=== PATIENT | male | born 1965 | race African-American/Black ===

== ENCOUNTER 2022-07-14 18:23 | Emergency (ER) | payer OTHER, SELFPAY ==
--- NOTE | ~2022-07-14 | XR_ITS ---
EXAMINATION: XR CHEST CLINICAL INFORMATION: Cough and shortness of breath COMPARISON: None available. TECHNIQUE: 2 views of the chest were obtained. FINDINGS: No significant abnormality is noted involving the heart, lungs, mediastinum, bony thorax or soft tissues. XR/XR chest 2V IMPRESSION: Unremarkable examination.
--- NOTE | ~2022-07-14 | CT_ITS ---
EXAMINATION: CT ANGIOGRAM OF THE CHEST WITH AND WITHOUT CONTRAST (CT PULMONARY ANGIOGRAM FOR PE) CLINICAL INFORMATION: Reason for Exam cough up blood sob COMPARISON: Chest radiograph from today TECHNIQUE: Prior to contrast administration, noncontrast localization images were obtained. Subsequently, multidetector volumetric imaging was performed from the thoracic inlet to below the diaphragms following the administration of 65 mL Omnipaque 350 intravenous contrast. No contrast reaction reported Sagittal, coronal, and MIP oblique sagittal reformatted images were obtained on the CT workstation, uploaded to PACS, and reviewed. This CT examination was performed using dose optimization techniques as appropriate, variously including the following: *Automated exposure control *Adjustment of mA and/or kV according to patient size (this includes techniques or standardized protocols for targeted exams where dose is matched to indication/reason for exam; i.e. extremities or head) *Use of iterative reconstruction technique Total exam dose-length product 318 mGy-cm FINDINGS: QUALITY OF STUDY/CONTRAST BOLUS: Significant motion/artifact but satisfactory. PULMONARY ARTERIES: No central or lobar pulmonary embolism. No segmental embolism identified, although the right upper lobe segmental levels are not well evaluated due to artifact and motion. THORACIC AORTA: No aneurysm. LUNG: No focal consolidation, nodules or masses. The central airways are patent. Minimal linear atelectasis in the right middle lobe. PLEURA: No pleural effusion or pneumothorax. MEDIASTINUM: Normal heart size. No pericardial effusion. No hilar or mediastinal lymphadenopathy. No evidence of septal bowing or right heart strain. CORONARY ARTERY CALCIFICATION: None visualized on this study. CHEST WALL/AXILLA: No axillary or internal mammary lymphadenopathy. OSSEOUS STRUCTURES: No acute or suspicious osseous abnormality. UPPER ABDOMEN: Unremarkable. No reflux of contrast into the hepatic veins to suggest elevated right heart pressures. CT/CT angio chest PE protocol IMPRESSION: Study limited by motion and contrast artifact. No pulmonary embolism or other acute intrathoracic abnormality. VTE: negative
[2022-07-14 18:27] VITALS: BP 149/89; PULSE 92; RESP 18; TEMP 36.1; O2SAT 94
--- NOTE | 2022-07-14 18:27 | ECG_ITS ---
Test Reason : cp/dyspnea Blood Pressure : / mmHG Vent. Rate : 082 BPM Atrial Rate : 082 BPM P-R Int : 134 ms QRS Dur : 076 ms QT Int : 346 ms P-R-T Axes : 062 026 053 degrees QTc Int : 404 ms Normal sinus rhythm Normal ECG No previous ECGs available Referred By: Kathleen Riggins Electronically Signed By:PALMER JOHNSON
--- NOTE | 2022-07-14 18:28 | ED.CHESTPAIN ---
HPI - Chest Pain General Stated Complaint: sob,chest pain,coughing Related Data Allergies Allergy/AdvReac Type Severity Reaction Status Date / Time Unable to Assess Allergy Verified 07/14/22 18:27 Course Course Course Narrative: This is a rapid medical exam. Deferred additional HPI, ROS, PE to primary provider. 56 yo male with history of asthma, GERD, anxiety, depression, bipolar disorder here with complaints of chest pain, shortness of breath and hemoptysis. No AC therapy use. Will obtain labs, EKG, CXR, viral testing.
[2022-07-14 19:20] LABS: MANUAL DIFF FLAG NO
[2022-07-14 19:22] LABS: Basophils Percent Auto 0.6 % (0-2); Eosinophils Absolute Auto 0.2 X10*3/uL (0.0-0.4); Hematocrit 36.8 % (42.0-52.0); Hemoglobin 12.5 g/dl (14.0-18.0); Imm Gran Abs Auto 0.01 X10*3/uL (0.00-0.03); Imm Gran Pct Auto 0.2 % (0.0-0.4); Lymphocytes Percent Auto 42.3 % (20-40); Mean Corpuscular Hemoglobin 26.7 pg (27.0-33.0); Mean Corpuscular Volume 78.6 fL (80.0-98.0); Mean Platelet Volume 8.2 fL (9.4-12.4); Monocytes Absolute Auto 0.6 X10*3/uL (0.1-1.2); Monocytes Percent Auto 12.1 % (2-11); Neutrophils Absolute Auto 1.9 x10*3/uL (2.0-8.3); Neutrophils Percent Auto 40.8 % (45-73); Platelet Count 209 X10*3/uL (160-400); Red Blood Count 4.68 X10*6/uL (4.60-5.80); Red Cell Distribution Width 12.7 % (11.0-16.0); White Blood Count 4.7 X10*3/uL (4.8-10.8)
[2022-07-14 19:24] VITALS: BP 133/81; PULSE 89; RESP 18; TEMP 36.8; O2SAT 96
[2022-07-14 19:27] LABS: Prothrombin Time 10.9 SEC (10.0-13.1)
[2022-07-14 19:38] LABS: Alanine Aminotransferase 23 U/L (0-40); Albumin Level 4.1 g/dL (3.5-5.0); Alkaline Phosphatase 70 U/L (39-117); Anion Gap 10 (12-20); Aspartate Amino Transferase 19 U/L (5-37); Bilirubin Direct 0.1 mg/dL (0.0-0.5); Bilirubin Total 0.4 mg/dL (0.0-1.0); Blood Urea Nitrogen 14 mg/dL (9-16); Calcium 9.1 mg/dL (8.4-10.2); Carbon Dioxide 27 mmol/L (22-29); Chloride 105 mmol/L (96-108); Creatinine Clr Calc Pharmacy 106.1; Estimated Glomerular Filt Rate > 60; Glucose Random 140 mg/dL (60-115); Potassium 4.4 mmol/L (3.3-5.1); Sodium 138 mmol/L (135-145)
[2022-07-14 19:44] LABS: Troponin-I High Sensitivity 9.5 ng/L (<3.5-35.0)
[2022-07-14 19:49] VITALS: BP 141/96; PULSE 85; RESP 18; TEMP 36.9; O2SAT 96
[2022-07-14 20:12] LABS: Influenza A PCR NEGATIVE (Negative); Influenza B PCR NEGATIVE (Negative); Resp Syncy Virus RNA Qual PCR NEGATIVE (Negative); SARS COV2 PCR INHOUSE NEGATIVE (Negative)
[2022-07-14] MEDS: Albuterol Sulfate (0.083%) 2.5 MG/3 ML VIAL.NEB INHALE (20:51)
[2022-07-14 20:53] VITALS: PULSE 84; RESP 18; O2SAT 95
[2022-07-14] MEDS: Albuterol Sulfate 90 MCG 8 GM INHALER 2 PUFF INHALE (21:01)
[2022-07-14] MEDS: iohexoL 350 MG/ML 100 ML INFUS..BTL IV (21:16)
--- NOTE | 2022-07-14 22:16 | MHC.EDTECH ---
Patient ambulated to bathroom with a steady gait.
--- NOTE | 2022-07-14 22:17 | ED.SOB ---
HPI - SOB/Dyspnea General Chief Complaint: Dyspnea Stated Complaint: sob,chest pain,coughing Time Seen by Provider: 07/14/22 18:56 Related Data Previous Rx's Medication Instructions Recorded albuterol sulfate 90 mcg/actuation 2 puff inhalation Q6H PRN sob #8.5 07/14/22 aerosol inhaler grams azithromycin 250 mg tablet See Rx Instructions PO .COMPLEX 07/14/22 upper resp infection #6 tabs Allergies Allergy/AdvReac Type Severity Reaction Status Date / Time lisinopril Allergy Unknown Verified 07/14/22 18:31 potassium chloride Allergy Unknown Verified 07/14/22 18:31 FOR[facility]LY [facility] Social History Social History Alcohol intake: never Smoked in Last 30 Days: Yes Use of substances other than those prescribed or required for medical reasons: No Advance Directives: No Advance Directives Information Provided: No Physical Exam Vital Signs: Vital Signs: Last Vital Signs Temp 98.4 F 07/14/22 19:49 Pulse 84 07/14/22 20:53 Resp 18 07/14/22 20:53 BP 141/96 H 07/14/22 19:49 Pulse Ox 96 07/14/22 19:49 O2 Del Method Room Air 07/14/22 19:49 BMI result Body Mass Index 30.0 Medications Administered Discontinued Medications Generic Name Dose Route Start Last Admin Trade Name Freq PRN Reason Stop Dose Admin Albuterol Sulfate 2.5 mg 07/14/22 20:43 07/14/22 20:51 Albuterol Sulfate (0.083%) 2.5 Mg/3 Ml Vial.Neb INHALE 07/14/22 20:44 2.5 mg ONCE ONE Administration Albuterol Sulfate 2 puff 07/14/22 20:57 07/14/22 21:01 Albuterol Sulfate 90 Mcg 8 Gm Inhaler INHALE 07/14/22 20:58 2 puff ONCE ONE Administration Iohexol 100 ml 07/14/22 21:15 07/14/22 21:16 Iohexol 350 Mg/Ml 100 Ml Infus..Btl IV 07/14/22 21:16 65 ml ONCE ONE Administration Medical Decision Making Medical Decision Making MDM Narrative: Patient presents today with having shortness of breath coughing repetitively. History of asthma. Patient lungs were clear. O2 sats 95% on room air. Patient is coughing up blood. Had shortness of breath. No evidence for congestive heart failure. lungs are clear. CTA of the chest was done. There was no evidence for pulmonary emboli. There was no pneumonia. No mass. No fracture. No pleural effusion. No evidence for CHF Patient's troponin was normal. There is no evidence for ACS. There is no chest pain associated with the symptoms. My interpretation of patient's EKG showed a sinus pattern heart rate is 80 LA QRS QT within normal limits there is no acute ST segment elevation noted. Did that with ACS. Question bronchitis. Patient's hemoglobin is no signs of anemia. No nausea no vomiting. Will start patient on cough medication as well as a Z-Len. Follow up on an outpatient basis. Differential Diagnosis Differential Diagnoses: The differential diagnosis associated with the presentation includes Pulmonary emboli, pneumonia, pneumothorax she, congestive heart failure, bronchitis Lab Data MDM Lab Attestation statement: I reviewed the patient's lab results. 07/14/22 19:15 07/14/22 19:15 Labs: Lab Results 07/14/22 07/14/22 07/14/22 Range/Units 19:15 19:15 19:15 WBC 4.7 L (4.8-10.8) X10*3/uL RBC 4.68 (4.60-5.80) X10*6/uL Hgb 12.5 L (14.0-18.0) g/dl Hct 36.8 L (42.0-52.0) % MCV 78.6 L (80.0-98.0) fL MCH 26.7 L (27.0-33.0) pg MCHC 34.0 (31.0-36.0) g/dl RDW 12.7 (11.0-16.0) % Plt Count 209 (160-400) X10*3/uL MPV 8.2 L (9.4-12.4) fL Immature Gran % (Auto) 0.2 (0.0-0.4) % Neut % (Auto) 40.8 L (45-73) % Lymph % (Auto) 42.3 H (20-40) % [place] % (Auto) 12.1 H (2-11) % Eos % (Auto) 4.0 (0-4) % Baso % (Auto) 0.6 (0-2) % Lymph # (Auto) 2.0 (1.2-4.9) X10*3/uL [place] # (Auto) 0.6 (0.1-1.2) X10*3/uL Eos # (Auto) 0.2 (0.0-0.4) X10*3/uL Baso # (Auto) 0.0 (0.0-0.2) X10*3/uL Abs Immat Gran (auto) 0.01 (0.00-0.03) X10*3/uL Absolute Neuts (auto) 1.9 L (2.0-8.3) x10*3/uL Absolute Nucleated RBC 0.000 (0.0-0.012) X10*3/uL Nucleated RBC % (auto) 0.0 (0.0-0.2) /100WBC PT 10.9 (10.0-13.1) SEC INR 1.0 (0.9-1.1) Sodium 138 (135-145) mmol/L Potassium 4.4 (3.3-5.1) mmol/L Chloride 105 (96-108) mmol/L Carbon Dioxide 27 (22-29) mmol/L Anion Gap 10 L (12-20) BUN 14 (9-16) mg/dL Creatinine 0.97 (0.5-1.4) mg/dL Estim Creat Clear Calc 106.1 Estimated GFR > 60 Random Glucose 140 H (60-115) mg/dL Calcium 9.1 (8.4-10.2) mg/dL Total Bilirubin 0.4 (0.0-1.0) mg/dL Direct Bilirubin 0.1 (0.0-0.5) mg/dL AST 19 (5-37) U/L ALT 23 (0-40) U/L Alkaline Phosphatase 70 (39-117) U/L Troponin I High Sens (<3.5-35.0) ng/L Total Protein 7.0 (6.5-8.0) g/dL Albumin 4.1 (3.5-5.0) g/dL 07/14/22 Range/Units 19:15 WBC (4.8-10.8) X10*3/uL RBC (4.60-5.80) X10*6/uL Hgb (14.0-18.0) g/dl Hct (42.0-52.0) % MCV (80.0-98.0) fL MCH (27.0-33.0) pg MCHC (31.0-36.0) g/dl RDW (11.0-16.0) % Plt Count (160-400) X10*3/uL MPV (9.4-12.4) fL Immature Gran % (Auto) (0.0-0.4) % Neut % (Auto) (45-73) % Lymph % (Auto) (20-40) % [place] % (Auto) (2-11) % Eos % (Auto) (0-4) % Baso % (Auto) (0-2) % Lymph # (Auto) (1.2-4.9) X10*3/uL [place] # (Auto) (0.1-1.2) X10*3/uL Eos # (Auto) (0.0-0.4) X10*3/uL Baso # (Auto) (0.0-0.2) X10*3/uL Abs Immat Gran (auto) (0.00-0.03) X10*3/uL Absolute Neuts (auto) (2.0-8.3) x10*3/uL Absolute Nucleated RBC (0.0-0.012) X10*3/uL Nucleated RBC % (auto) (0.0-0.2) /100WBC PT (10.0-13.1) SEC INR (0.9-1.1) Sodium (135-145) mmol/L Potassium (3.3-5.1) mmol/L Chloride (96-108) mmol/L Carbon Dioxide (22-29) mmol/L Anion Gap (12-20) BUN (9-16) mg/dL Creatinine (0.5-1.4) mg/dL Estim Creat Clear Calc Estimated GFR Random Glucose (60-115) mg/dL Calcium (8.4-10.2) mg/dL Total Bilirubin (0.0-1.0) mg/dL Direct Bilirubin (0.0-0.5) mg/dL AST (5-37) U/L ALT (0-40) U/L Alkaline Phosphatase (39-117) U/L Troponin I High Sens 9.5 (<3.5-35.0) ng/L Total Protein (6.5-8.0) g/dL Albumin (3.5-5.0) g/dL Independent Interpretation I performed an independent interpretation of an: EKG Interpretation: Heart rate is 80 LA QRS QT within normal limits as no acute ST segment elevation Radiology Impression Discussion of test interpretation with radiology: I have reviewed the radiologist's reading. Radiologist Impression: CT scan head grossly negative for any acute evidence of PE Chronic Conditions Patient?s care impacted by: Hypertension Social Determinants Patient?s care significantly limited by Social Determinants of Health including: Inadequate housing Patient is homeless Discharge Plan Discharge Clinical Impression: Bronchitis Patient Disposition: Home, Self-Care Instructions: Acute Bronchitis (ED) Prescriptions: New azithromycin 250 mg tablet See Rx Instructions .ROUTE .COMPLEX Qty: 6 0RF Rx Instructions: take 500 mg today (day 1), then 250 mg for 4 days (days 2-5) albuterol sulfate 90 mcg/actuation HFA aerosol inhaler 2 puff inhalation Q6H PRN (Reason: sob) Qty: 8.5 0RF Referrals: Physician,None [Primary Care Provider] -
[2022-07-14 22:34] VITALS: BP 123/74; PULSE 82; RESP 18; TEMP 36.5; O2SAT 97
== END 2022-07-14 22:38 | disposition home or self-care (01) ==
PROVIDERS: Nurse Practitioner Family; Emergency Provider Emergency Medicine Emergency Medical Services
DX: J40 Bronchitis, not specified as acute or chronic (principal); R06.02 Shortness of breath; R05.9 Cough, unspecified; R07.89 Other chest pain; Z20.822 Contact with and (suspected) exposure to COVID-19; Z20.828 Contact with and (suspected) exposure to other viral communicable diseases; Z79.899 Other long term (current) drug therapy
CPT/HCPCS: 0241U; 36415; 71046; 71275; 80048; 80076; 84484; 85025; 85610; 93005; 94640; 99284; 99285; Q9967

== ENCOUNTER 2022-07-30 14:49 | Emergency (ER) | payer MEDICARE, MEDICAID, SELFPAY ==
--- NOTE | ~2022-07-30 | XR_ITS ---
EXAMINATION: XR FOOT, RIGHT CLINICAL INFORMATION: First metatarsophalangeal injury. COMPARISON: None available. TECHNIQUE: AP, lateral, and oblique views of the right foot. FINDINGS: The bones and soft tissues are normal. No fracture. Alignment is anatomic. Joint spaces are maintained. XR/XR foot RT min 3V IMPRESSION: Unremarkable plain radiographs of the right foot
[2022-07-30 14:51] VITALS: BP 146/89; PULSE 99; RESP 17; TEMP 36.9; O2SAT 96; BMI 31.0
--- NOTE | 2022-07-30 14:53 | ED.LOWEXIN ---
HPI - Extremity Injury (Lower) General Chief Complaint: Extremity Injury, Lower <TAWANDA Grant - Last Filed: 07/30/22 14:57> Stated Complaint: r great toe inj <TAWANDA Grant - Last Filed: 07/30/22 14:57> Time Seen by Provider: 07/30/22 15:47 <TAWANDA Grant - Last Filed: 07/30/22 14:57> Source: patient <Naty Concepcion NP - Last Filed: 07/30/22 16:35> Mode of arrival: ambulatory <Naty Concepcion NP - Last Filed: 07/30/22 16:35> Limitations: no limitations <LEANDER Son Last Filed: 07/30/22 16:35> History of Present Illness HPI Narrative: Patient is a 57-year-old male with history of hypertension presenting to the emergency department with right great toe pain after dropping a glass jar onto his foot prior to arrival. He reports associated numbness and tingling. He did not use any [id number] medications for his symptoms, did not apply any ice. He did wrap his foot with an Phillip wrap. He reports decreased range of motion with flexion of his toes related to pain. He denies any other injuries. <Naty Concepcion NP - Last Filed: 07/30/22 16:35> Related Data Home Medications: Previous Rx's Medication Instructions Recorded albuterol sulfate 90 mcg/actuation 2 puff inhalation Q6H PRN sob #8.5 07/14/22 aerosol inhaler grams azithromycin 250 mg tablet See Rx Instructions PO .COMPLEX 07/14/22 upper resp infection #6 tabs <TAWANDA Grant - Last Filed: 07/30/22 14:57> Allergies/Adverse Reactions: Allergies Allergy/AdvReac Type Severity Reaction Status Date / Time lisinopril Allergy Unknown Verified 07/14/22 18:31 potassium chloride Allergy Unknown Verified 07/14/22 18:31 <TAWANDA Grant Last Filed: 07/30/22 14:57> Review of Systems Review of Systems: Yes all other systems are reviewed and are negative <Naty Concepcion NP - Last Filed: 07/30/22 16:35> Constitutional: Constitutional: Reports as per HPI <Naty Concepcion NP - Last Filed: 07/30/22 16:35> Neurologic: Denies Sensory deficit (Neuro) <Naty Concepcion NP - Last Filed: 07/30/22 16:35> FOR[facility]LY [facility], [facility] Social History Social History: Social History Alcohol intake: never Advance Directives: No Advance Directives Information Provided: No <TAWANDA Grant - Last Filed: 07/30/22 14:57> Physical Exam Vital Signs: Vital Signs: Last Vital Signs Temp 98.5 F 07/30/22 14:51 Pulse 99 07/30/22 14:51 Resp 17 07/30/22 14:51 BP 146/89 H 07/30/22 14:51 Pulse Ox 96 07/30/22 14:51 O2 Del Method Room Air 07/30/22 14:51 BMI result Body Mass Index 31.0 <TAWANDA Grant - Last Filed: 07/30/22 14:57> Vital Signs: Last Vital Signs Temp 98.5 F 07/30/22 14:51 Pulse 99 07/30/22 14:51 Resp 17 07/30/22 14:51 BP 146/89 H 07/30/22 14:51 Pulse Ox 96 07/30/22 14:51 O2 Del Method Room Air 07/30/22 14:51 BMI result Body Mass Index 31.0 <Naty Concepcion NP - Last Filed: 07/30/22 16:35> Const: General: cooperative, healthy appearing and no acute distress <Naty Concepcion NP - Last Filed: 07/30/22 16:35> Orientation/consciousness: oriented to person, oriented to place, oriented to time and patient oriented x3 <Naty Concepcion NP - Last Filed: 07/30/22 16:35> Limitations: no limitations <Naty Concepcion NP - Last Filed: 07/30/22 16:35> HEENT: Head: Yes normocephalic and Yes atraumatic <LEANDER Son Last Filed: 07/30/22 16:35> Ears: external ears normal <Naty Concepcion NP - Last Filed: 07/30/22 16:35> General nose exam: Normal external nose present <Naty Concepcion NP - Last Filed: 07/30/22 16:35> Face and sinus: Yes face symmetric <Naty Concepcion NP - Last Filed: 07/30/22 16:35> Mouth: oropharynx normal and moist mucous membranes <Naty Concepcion NP - Last Filed: 07/30/22 16:35> Throat: Yes uvula midline <Naty Concepcion NP - Last Filed: 07/30/22 16:35> Eyes: Pupils: Equal, round and reactive pupils present <Naty Concepcion NP - Last Filed: 07/30/22 16:35> Neck: Neck: Yes normal visual inspection and Yes supple <Naty Concepcion NP - Last Filed: 07/30/22 16:35> Resp: Effort & Inspection: normal respiratory effort and able to speak in complete sentences <Naty Concepcion NP - Last Filed: 07/30/22 16:35> Auscultation: clear to auscultation bilaterally <Naty Concepcion NP - Last Filed: 07/30/22 16:35> Cardio: Rate: regular rate <Naty Concepcion NP - Last Filed: 07/30/22 16:35> Rhythm: regular rhythm <Naty Concepcion NP - Last Filed: 07/30/22 16:35> Heart sounds: S1 normal heart sound present and S2 normal heart sound present <Naty Concepcion NP - Last Filed: 07/30/22 16:35> Skin: General skin exam: elasticity normal and turgor normal <Naty Concepcion NP - Last Filed: 07/30/22 16:35> Neuro: General: oriented to person, oriented to place, oriented to time, patient oriented x3, moves all extremities and no focal motor deficits <Naty Concepcion NP - Last Filed: 07/30/22 16:35> Cranial nerves: Yes Equal, round and reactive pupils present <Naty Concepcion NP - Last Filed: 07/30/22 16:35> Cognition (Neuro): normal cognition <LEANDER Son Last Filed: 07/30/22 16:35> Sensory Exam: No Sensory deficit (Neuro) <Naty Concepcoin NP - Last Filed: 07/30/22 16:35> Extrem: Right lower extremity: foot Details: normal capillary refill, abnormal to inspection Details: erythematous, tenderness Location: of the great toe Location: at the MTP joint, at the proximal phalanx, at the IP joint and at the distal phalanx, abnormal ROM of toe Details: pain with active ROM Location: of all toes and pain with passive ROM and edema Location: of the great toe Location: at the MTP joint, at the proximal phalanx, at the IP joint, at the distal phalanx and along the dorsal aspect; no unusual warmth, no ecchymosis and no crepitus <Naty Concepcion NP - Last Filed: 07/30/22 16:35> Psych: Mental Status: mental status grossly normal <Naty Concepcion NP - Last Filed: 07/30/22 16:35> Affect: normal affect <LEANDER Son Last Filed: 07/30/22 16:35> Thought process: Normal thought process present <Naty Concepcion NP - Last Filed: 07/30/22 16:35> Course Course Course Narrative: RME - 57 yo male with history of asthma, GERD, bipolar disorder, anxiety/depression presents to the ER for evaluation of right great toe injury earlier today. He dropped a glass coffee jar onto his toe this morning. No injury to the foot. He walks into triage with a limp. He has mild redness, swelling and tenderness to the 1st MTP. Plan: XR ordered <TAWANDA Grant - Last Filed: 07/30/22 14:57> RME - 57 yo male with history of asthma, GERD, bipolar disorder, anxiety/depression presents to the ER for evaluation of right great toe injury earlier today. He dropped a glass coffee jar onto his toe this morning. No injury to the foot. He walks into triage with a limp. He has mild redness, swelling and tenderness to the 1st MTP. Plan: XR ordered 16:25 FINDINGS: The bones and soft tissues are normal. No fracture. Alignment is anatomic. Joint spaces are maintained.? XR/XR foot RT min 3V IMPRESSION: Unremarkable plain radiographs of the right foot <Naty Concepcion NP - Last Filed: 07/30/22 16:35> Medications Administered Discontinued Medications Generic Name Dose Route Start Last Admin Trade Name Freq PRN Reason Stop Dose Admin Acetaminophen 975 mg 07/30/22 15:59 07/30/22 16:05 Acetaminophen 325 Mg Tablet PO 07/30/22 16:00 975 mg ONCE ONE Administration <TAWANDA Grant - Last Filed: 07/30/22 14:57> Medications Administered Discontinued Medications Generic Name Dose Route Start Last Admin Trade Name Freq PRN Reason Stop Dose Admin Acetaminophen 975 mg 07/30/22 15:59 07/30/22 16:05 Acetaminophen 325 Mg Tablet PO 07/30/22 16:00 975 mg ONCE ONE Administration <Naty Concepcion NP - Last Filed: 07/30/22 16:35> Medical Decision Making Medical Decision Making MDM Narrative: Patient is a 57-year-old male with history of hypertension presenting to the emergency department with right great toe pain after dropping a glass jar onto his foot prior to arrival. On exam patient is nontoxic appearing, vital signs within normal limits, afebrile, mild edema, erythema, and tenderness to palpation of right great toe and 1st MTP joint with limited range of motion related to pain, capillary refill less than 2 seconds. No open fracture or evidence of neurovascular compromise. Concern for contusion, fracture, or dislocation. Less likely gout in setting of known traumatic injury. Plan: pain control, x-ray Please refer to course for remaining clinical decision making. <Naty Concepcion NP - Last Filed: 07/30/22 16:35> Differential Diagnosis Differential Diagnoses: The differential diagnosis associated with the presentation includes <Naty Concepcion NP - Last Filed: 07/30/22 16:35> As above. <Naty Concepcion NP - Last Filed: 07/30/22 16:35> Independent Interpretation I performed an independent interpretation of an: Plain X-Ray <Naty Concepcion NP - Last Filed: 07/30/22 16:35> Interpretation: I independently reviewed the x-ray and agree with the radiologist's interpretation. <Naty Concepcion NP - Last Filed: 07/30/22 16:35> Radiology Impression Discussion of test interpretation with radiology: I have reviewed the radiologist's reading. <Naty Concepcion NP - Last Filed: 07/30/22 16:35> Radiologist Impression: FINDINGS: The bones and soft tissues are normal. No fracture. Alignment is anatomic. Joint spaces are maintained.? XR/XR foot RT min 3V IMPRESSION: Unremarkable plain radiographs of the right foot <Naty Concepcion NP - Last Filed: 07/30/22 16:35> External Record Review External record reviewed: Inpatient record, Office record and Outpatient record <Naty Concepcion NP - Last Filed: 07/30/22 16:35> Discharge Plan Discharge Clinical Impression: Contusion of foot, right <TAWANDA Grant - Last Filed: 07/30/22 14:57> Patient Disposition: Home, Self-Care <TAWANDA Grant - Last Filed: 07/30/22 14:57> Instructions: Foot Contusion (ED) <TAWANDA Grant - Last Filed: 07/30/22 14:57> Additional Instructions: You were evaluated in the emergency department today for right foot pain. Your evaluation did not find evidence of fracture or dislocation. Please rest, ice, and elevate your foot, and resume normal activities as tolerated. You can take Tylenol per package instructions as needed for pain. Please schedule an appointment for follow-up with your primary care physician this week. Return to the emergency department if you experience worsening pain, numbness, tingling, change of color in your toes, or any other concerning symptoms. <TAWANDA Grant - Last Filed: 07/30/22 14:57> Prescriptions: No Action azithromycin 250 mg tablet See Rx Instructions .ROUTE .COMPLEX Qty: 6 0RF Rx Instructions: take 500 mg today (day 1), then 250 mg for 4 days (days 2-5) albuterol sulfate 90 mcg/actuation HFA aerosol inhaler 2 puff inhalation Q6H PRN (Reason: sob) Qty: 8.5 0RF <TAWANDA Grant - Last Filed: 07/30/22 14:57>
[2022-07-30] MEDS: Acetaminophen 325 MG TABLET 975 MG PO (16:05)
== END 2022-07-30 16:58 | disposition home or self-care (01) ==
PROVIDERS: Emergency Provider Emergency Medicine
DX: S90.31XA Contusion of right foot, initial encounter (principal); Y29.XXXA Contact with blunt object, undetermined intent, initial encounter; Y93.9 Activity, unspecified; Y92.9 Unspecified place or not applicable; Y99.9 Unspecified external cause status
CPT/HCPCS: 73630; 99283